=== PATIENT | male | born 1975 | race American Indian/Alaskan Native ===

== ENCOUNTER 2021-09-26 08:14 | Outpatient (CLI) | payer OTHER ==
--- NOTE | 2021-09-26 09:35 | XRay Report ---
LEFT HAND 3 VIEW(S) INDICATION / CLINICAL INFORMATION: PAIN/SWELLING IN LEFT HAND COMPARISON: None available. FINDINGS: BONES / JOINT(S): Nondisplaced fracture of the base of the first metacarpal. No significant arthritis . SOFT TISSUES: No significant abnormality. ADDITIONAL FINDINGS: None. Signer Name: Richard Live DO Signed: 09/26/2021 9:31 AM Workstation Name: [id number]
== END 2021-09-26 08:15 | disposition home or self-care (01) ==
LOC: XRAY 08:14
PROVIDERS: ATTEND Internal Medicine
DX: S62.235A Other nondisplaced fracture of base of first metacarpal bone, left hand, initial encounter for closed fracture (principal); M79.89 Other specified soft tissue disorders; X58.XXXA Exposure to other specified factors, initial encounter; Y93.89 Activity, other specified; Y92.89 Other specified places as the place of occurrence of the external cause; Y99.8 Other external cause status